=== PATIENT | male | born 1975 | race Caucasian/White ===

== ENCOUNTER 2022-08-09 10:59 | Outpatient (CLI) | payer BC, SELFPAY | END 2022-08-09 11:00 | disposition home or self-care (01) | LOC: RAD 11:00 → INJ CL 11:09 | PROVIDERS: PCP Family Medicine; Visit Provider Family Medicine | DX: M54.16 Radiculopathy, lumbar region (principal); M51.36 Other intervertebral disc degeneration, lumbar region | CPT/HCPCS: 62323; Q9966 ==

== ENCOUNTER 2022-09-17 07:15 | Outpatient (CLI) | payer BC, SELFPAY | END 2022-09-17 07:16 | disposition home or self-care (01) | PROVIDERS: PCP Family Medicine; Visit Provider Family Medicine | DX: M54.16 Radiculopathy, lumbar region (principal); M51.36 Other intervertebral disc degeneration, lumbar region | CPT/HCPCS: 64483; J1100; Q9966 ==

== ENCOUNTER 2023-08-23 12:18 | Emergency (ER) | payer BC, SELFPAY ==
[2023-08-23] VITALS (7 sets, daily range): BP systolic 129–164; BP diastolic 91–132; PULSE 48–62; RESP 18; TEMP 36.2; O2SAT 93–98; BMI 25.1
--- NOTE | 2023-08-23 12:55 | CRLHL7_ITS ---
For Patients: As a result of the Century Cures Act, medical imaging exams and procedure reports are released immediately into your electronic medical record. You may view this report before your referring provider. If you have questions, please contact your health care provider. HISTORY: Right flank pain. TECHNIQUE: Noncontrast CT of the abdomen and pelvis. COMPARISON: No prior. FINDINGS: Subtle 2.5 mm calculus at the right ureterovesical junction on axial image #122 of series 2. Associated mild right-sided hydronephrosis and hydroureter. There is a small amount of perinephric fluid present on the right. Additional intrarenal calculi are present on the right. On the left, there is a 2 mm intrarenal calculus within the superior pole of the right kidney. There is no left-sided hydronephrosis. No left ureteral calculus. Urinary bladder is nondistended. No focal liver lesion. Gallbladder does not appear excessively distended. Spleen size within normal limits. Adrenal glands normal. No focal pancreatic abnormality. No small bowel obstruction. No appendicitis. Colonic diverticulosis without diverticulitis. Atherosclerotic changes of the abdominal aorta without aneurysm. Small bilateral fat containing inguinal hernias. There are tree-in-bud centrilobular opacities within the left lower lobe likely reflecting endobronchial spread of infection or infected distal airways disease. No lung consolidation. Degenerative changes of the spine. Degenerative changes of the sacroiliac joints and hips. There are a few bone islands present. IMPRESSION: 1. On the right, there is mild hydronephrosis and hydroureter secondary to a 2.5 mm calculus at the ureterovesical junction. Small amount of perinephric fluid. Additional intrarenal calculi present. 2. On the left, small intrarenal calculus. No ureteral calculus or hydronephrosis on the left. 3. Centrilobular tree-in-bud opacities within the left lower lobe suggesting endobronchial spread of infection or infected distal airways disease. No lung consolidation. Dictated by Remy Acharya MD @ 08/23/2023 1:39:09 PM Please note that all CT scans at this facility use dose modulation, iterative reconstruction, and/or weight-based dosing when appropriate to reduce radiation dose to as low as reasonably achievable. Dictated by: Remy Acharya MD @ 08/23/2023 13:39:18 (Electronically Signed)
--- NOTE | 2023-08-23 12:58 | ED_ITS ---
HPI - General Adult General Chief complaint: Flank Pain Stated complaint: kidney stones Time Seen by Provider: 08/23/23 12:52 History of Present Illness HPI narrative: 40 year white male presents with right flank pain. He has had a history kidney stones in the past. Last 1 was in December. He have 0 0 has always passed these and has not needed surgical intervention. He had the onset at 4:00 a.m. of significant right flank pain today and feels very similar to kidney stone he has had the past. He denies hematuria, he has had difficulty urinating. He is going to been a good amount of pain in his right flank radiating around to his anterior abdomen. No trauma or injury. Related Data Home Medications Medication Instructions Recorded Confirmed aspirin 81 mg tablet,delayed 81 mg PO DAILY 08/23/23 08/23/23 release (Adult Aspirin Regimen) celecoxib 200 mg capsule 200 mg PO BID 08/23/23 08/23/23 gabapentin 300 mg capsule 300 mg PO QPM 08/23/23 08/23/23 rosuvastatin 40 mg tablet 40 mg PO DAILY 08/23/23 08/23/23 Previous Rx's Medication Instructions Recorded azithromycin 250 mg tablet See Rx Instructions PO .COMPLEX #6 08/23/23 (Zithromax Z-Latrell) tabs hydrocodone 7.5 mg-acetaminophen 1 tab PO Q8H PRN pain #14 tabs 08/23/23 325 mg tablet ketorolac 10 mg tablet 10 mg PO Q8H PRN pain 3 days #10 08/23/23 tabs Allergies Allergy/AdvReac Type Severity Reaction Status Date / Time No Known Drug Allergies Allergy Verified 08/23/23 12:50 Review of Systems Status of ROS: Reports: 6 or more systems reviewed and unremarkable except as noted in History and below [facility] Social History Smoking Status: Unknown if ever smoked Exam Narrative: Exam Narrative: Objective vital signs are elevated blood pressure, afebrile, O2 sat is excellent In mild to moderate distress and discomfort alert orient x3, noncyanotic HEENT is unremarkable neck is supple pulses regular abdomen benign soft nontender negative CVA tenderness he does report a little bit of tenderness on the right side in his CVA area Denies discomfort extremities are no edema neurologic nonfocal Const: Vital Signs, click to edit/add: Vital Signs - 24 hr 08/23/23 12:46 08/23/23 13:26 08/23/23 13:30 Temperature 97.1 F L Pulse Rate 48 L 52 L Pulse Rate [Pulse Oximeter] 57 L Respiratory Rate 18 Blood Pressure Blood Pressure [Le ft Upper Arm] 164/132 H Pulse Oximetry 98 96 93 Oxygen Delivery Me thod Room Air Room Air Room Air 08/23/23 13:31 08/23/23 13:32 08/23/23 14:02 Temperature Pulse Rate 52 L 53 L 49 L Pulse Rate [Pulse Oximeter] Respiratory Rate Blood Pressure 147/96 H Blood Pressure [Le ft Upper Arm] Pulse Oximetry 93 93 95 Oxygen Delivery Me thod Room Air 08/23/23 14:06 Temperature Pulse Rate 62 Pulse Rate [Pulse Oximeter] Respiratory Rate Blood Pressure 129/91 H Blood Pressure [Le ft Upper Arm] Pulse Oximetry 95 Oxygen Delivery Me thod Course Vital Signs Vital signs: Initial Vital Signs Temperature 97.1 F L 08/23/23 12:46 Temperature Source Temporal Artery Scan 08/23/23 12:46 Pulse Rate 57 L 08/23/23 12:46 Respiratory Rate 18 08/23/23 12:46 Blood Pressure 164/132 H 08/23/23 12:46 Blood Pressure Mean 142 H 08/23/23 12:46 Blood Pressure Position Sitting 08/23/23 12:46 Pulse Oximetry 98 08/23/23 12:46 Oxygen Delivery Method Room Air 08/23/23 12:46 Vital Signs Temperature 97.1 F L 08/23/23 12:46 Pulse Rate 57 L 08/23/23 12:46 Respiratory Rate 18 08/23/23 12:46 Blood Pressure 164/132 H 08/23/23 12:46 Pulse Oximetry 98 08/23/23 12:46 Oxygen Delivery Method Room Air 08/23/23 12:46 Temperature 97.1 F L 08/23/23 12:46 Pulse Rate 62 08/23/23 14:06 Respiratory Rate 18 08/23/23 12:46 Blood Pressure 129/91 H 08/23/23 14:06 Pulse Oximetry 95 08/23/23 14:06 Oxygen Delivery Method Room Air 08/23/23 13:31 Medications Administered Medications: Discontinued Medications Generic Name Dose Route Start Last Admin Trade Name Freq PRN Reason Stop Dose Admin Sodium Chloride 1,000 mls @ 6,000 mls/hr 08/23/23 13:00 08/23/23 14:10 0.9 % Sodium Chloride 1000 Ml IV 08/23/23 13:09 Infused .Q10M BETTY Infusion Ketorolac Tromethamine 30 mg 08/23/23 12:55 08/23/23 13:15 Ketorolac 30 Mg/Ml Inj IVP 08/23/23 12:56 30 mg ONCE ONE Administration Morphine Sulfate 4 mg 08/23/23 12:55 08/23/23 13:15 Morphine 4 Mg/Ml Inj IVP 08/23/23 12:56 4 mg ONCE ONE Administration Ondansetron HCl 4 mg 08/23/23 13:21 08/23/23 13:23 Ondansetron 2 Mg/Ml Inj IVP 08/23/23 13:22 4 mg ONCE ONE Administration Medical Decision Making MDM Narrative Medical decision making narrative: 40-year-old white male with a history kidney stones, with similar flank pain radiating around from the right to the anterior abdomen at this point I think a CT would be indicated as check size of stone, and confirm diagnosis will check urinalysis. Will give some IV morphine and Toradol. Will check laboratory studies and urinalysis. Disposition pending findings above his clinical response. Addendum 1:47 p.m.: Patient has a 2.5 mm distal right kidney stone he has got some small intrarenal calculi as well. Also noted is small area of perhaps pneumonia in his left lower lung. I think will prescribe Toradol and [place] for him for his kidney stone, will given a urine strainer to strain for the next 48 hours and bring in the sample to the clinic or hospital for evaluation. I would also give him a Z-Latrell because he has got some evidence of infection is lower lung he has had a cough. He does not feel toxically sick. He should have a follow-up x-ray in 6 weeks of his chest to make sure that completely cleared. Discussed his kidney stone issues with his regular doctor in the next week to 2 weeks. He has comfortable plan. Lab Data Labs: Lab Results 08/23/23 08/23/23 Range/Units 13:12 14:11 WBC 17.39 H (4.50-11.00) K/uL RBC 5.19 (4.30-5.90) m/uL Hgb 16.3 (13.5-17.5) gm/dL Hct 47.4 (37.0-53.0) % MCV 91 (80-100) fL MCH 31 (26-34) pg MCHC 34 (32-36) gm/dL RDW Coeff of Aureliano 12.4 (11.5-15.5) % Plt Count 228 (140-440) K/uL Neut % (Auto) 88.6 H (42.0-72.0) % Lymph % (Auto) 6.6 L (20-44) % [place] % (Auto) 4.4 (0.0-11.0) % Eos % (Auto) 0.1 (0.0-7.0) % Baso % (Auto) 0.1 (0.0-3.0) % Neut # (Auto) 15.40 H (1.7-7.0) K/uL Lymph # (Auto) 1.10 (0.90-2.90) K/uL [place] # (Auto) 0.80 (0.00-0.90) K/UL Eos # (Auto) 0.00 (0.00-0.50) K/uL Baso # (Auto) 0.00 (0.00-0.30) K/uL Abs Immat Gran (auto) 0.00 (0.00-0.30) K/uL Imm/Tot Granulo (auto) 0.2 % Sodium 139 (135-149) mmol/L Potassium 4.0 (3.6-5.1) mmol/L Chloride 106 (96-114) mmol/L Carbon Dioxide 23 (20-32) mmol/L Anion Gap 10 (7-15) mEq/L BUN 23 (5-24) mg/dL Creatinine 1.0 (0.5-1.5) mg/dL Estimated Creat Clear 93.28 Estimated GFR 93 ml/min Glucose 104 (60-115) mg/dL Calcium 9.1 (8.4-10.6) mg/dL C-Reactive Protein 0.5 (0.5-1.0) mg/dL Amylase 133 H (18-89) U/L Urine Color Yellow (Yellow) Urine Appearance Clear (Clear) Urine pH 5.5 (5.0-8.5) Ur Specific [place] >= 1.030 (1.000-1.030) Urine Protein Negative (Negative) Urine Glucose (UA) Negative (Negative) Urine Ketones 3+ A (Negative) Urine Blood 3+ A (Negative) Urine Nitrite Negative (Negative) Urine Bilirubin 1+ A (Negative) Urine Urobilinogen 0.2 (0.2-1.0) Ur Leukocyte Esterase Negative (Negative) Urine RBC 5-10 A (0-2) Urine WBC 0-2 (0-5) Ur Squamous Epith Cells Few (None-Few) Urine Bacteria Few A (None) Urine Mucus Few A (None) Discharge Plan Discharge Clinical Impression: Acute right flank pain, Kidney stone, Acute respiratory infection Patient Disposition: Home w/ Parent or Adult Condition: Improved Additional Instructions: Rest, fluids, Tylenol as needed, [place] as needed for pain, Toradol as needed for pain, will give a Z-Latrell for respiratory infection. No driving while taking [place], and do not take additional Tylenol with [place], as it already contains Tylenol. Recheck with regular doctor in the next 7-10 days for reassessment of kidney stones and pulmonary infection. You should have a repeat chest x-ray in 6 weeks. Strain your urine for 48 hours. Please give a urine strainer. Return to ED as needed. Activity Level: Light activity Discharge Diet: Regular Prescriptions: New azithromycin [Zithromax Z-Latrell] 250 mg tablet See Rx Instructions .ROUTE .COMPLEX Qty: 6 0RF Rx Instructions: For 250 mg dose pack: take 500 mg today (day 1), then 250 mg for 4 days (days 2-5) ketorolac 10 mg tablet 10 mg PO Q8H PRN (Reason: pain) 3 Days Qty: 10 0RF hydrocodone-acetaminophen 7.5-325 mg tablet 1 tab PO Q8H PRN (Reason: pain) Qty: 14 0RF No Action celecoxib 200 mg capsule 200 mg PO BID gabapentin 300 mg capsule 300 mg PO QPM rosuvastatin 40 mg tablet 40 mg PO DAILY aspirin [Adult Aspirin Regimen] 81 mg tablet,delayed release (DR/EC) 81 mg PO DAILY Follow Up/Referrals: Seth Ambrocio MD [Primary Care Provider] - Stand Alone Forms: [employer] Info Instructions
[2023-08-23] MEDS: KETOROLAC 30 MG/ML inj IVP (13:15)
[2023-08-23] MEDS: MORPHINE 4 MG/ML INJ IVP (13:15)
[2023-08-23] MEDS: 0.9 % SODIUM CHLORIDE 1000 ml 1,000 ML 6000 ML IV (13:15)
[2023-08-23] MEDS: ONDANSETRON 2 MG/ML inj 4 MG IVP (13:23)
[2023-08-23 13:34] LABS: Basophils Percent Auto 0.1 % (0.0-3.0); Eosinophils Percent Auto 0.1 % (0.0-7.0); Hematocrit 47.4 % (37.0-53.0); Hemoglobin* 16.3 gm/dL (13.5-17.5); Immature Granulocytes Pct Auto 0.2 %; Lymphocytes Percent Auto 6.6 % (20-44); Mean Corpuscular HGB Conc 34 gm/dL (32-36); Mean Corpuscular Hemoglobin 31 pg (26-34); Mean Corpuscular Volume 91 fL (80-100); Monocytes Percent Auto 4.4 % (0.0-11.0); Neutrophils Percent Auto 88.6 % (42.0-72.0); Platelet Count* 228 K/uL (140-440); RDW Coefficient of Variation % 12.4 % (11.5-15.5); Red Blood Count 5.19 m/uL (4.30-5.90); White Blood Count* 17.39 K/uL (4.50-11.00)
[2023-08-23 13:47] LABS: Slide Review Reflex No
[2023-08-23 13:49] LABS: Chloride* 106 mmol/L (96-114); Sodium* 139 mmol/L (135-149)
[2023-08-23 13:52] LABS: Amylase* 133 U/L (18-89); Est. Creatinine Clearance* 93.28; Estimated Glomerular Filt Rate 93 ml/min
[2023-08-23 13:53] LABS: Anion Gap 10 mEq/L (7-15); Blood Urea Nitrogen* 23 mg/dL (5-24); Calcium* 9.1 mg/dL (8.4-10.6); Carbon Dioxide* 23 mmol/L (20-32); Glucose* 104 mg/dL (60-115)
[2023-08-23 13:56] LABS: C Reactive Protein* 0.5 mg/dL (0.5-1.0)
--- NOTE | 2023-08-23 14:19 | ED.NURSE ---
Pt's pharmacy ([facility] in [place]) is already closed, so pt requesting medications be sent to [facility] in [place]. updated and will resend scripts to [facility]. Call to [facility] in [place] to cancel scripts.
[2023-08-23 14:38] LABS: Appearance Urine Clear (Clear); Bilirubin Urine 1+ (Negative); Blood Urine 3+ (Negative); Color Urine Yellow (Yellow); Glucose Urine Negative (Negative); Ketones Urine 3+ (Negative); Leukocyte Esterase Urine Negative (Negative); Nitrite Urine Negative (Negative); Protein Urine Negative (Negative); Specific Gravity Urine >= 1.030 (1.000-1.030); Urobilinogen Urine 0.2 (0.2-1.0); pH Urine 5.5 (5.0-8.5)
[2023-08-23 14:57] LABS: Bacteria Urine Few; Mucus Urine Few; Squamous Epithelial Cell Urine Few (None-Few); WBC Urine 0-2 (0-5)
== END 2023-08-23 14:24 | disposition home or self-care (01) ==
PROVIDERS: Emergency Provider Family Medicine; PCP Family Medicine
DX: N20.0 Calculus of kidney (principal); R10.9 Unspecified abdominal pain; J06.9 Acute upper respiratory infection, unspecified
CPT/HCPCS: 36415; 74176; 80048; 81001; 82150; 85025; 86140; 87086; 96374; 96375; 99284; J1885; J2270; J2405; J7030